=== PATIENT | male | born 1990 | race Caucasian/White ===

== ENCOUNTER 2017-05-05 16:27 | Emergency (ER) | payer SELFPAY ==
[~2017-05-05] VITALS: Ht 154.9 cm; Wt 104.6 kg
[2017-05-05 16:41] VITALS: BP 126/76
[2017-05-05] MEDS ORDERED: NAPROSYN500 MG PO (17:44)
[2017-05-05] MEDS ORDERED: TRAMADOL HCL50 MG PO (17:44)
== END 2017-05-05 18:00 | disposition home or self-care (01) ==
LOC: EME 16:27
PROC: 3E0T3BZ Introduction of Anesthetic Agent into Peripheral Nerves and Plexi, Percutaneous Approach (ICD-10-PCS; principal; 2017-05-05)
DX: G89.29 Other chronic pain (principal); K08.89 Other specified disorders of teeth and supporting structures; K04.1 Necrosis of pulp; K03.81 Cracked tooth; F17.210 Nicotine dependence, cigarettes, uncomplicated
CPT/HCPCS: 99281; 99283